=== PATIENT | male | born 1950 ===

== ENCOUNTER 2016-12-27 07:02 | Outpatient (CLI) | payer MEDICARE, MEDICAID ==
[2016-12-27 18:32] LABS: BASOPHILS # (AUTO) 0.1 10^3/uL (0.0-0.1); BASOPHILS % (AUTO) 0.9 %; EOSINOPHILS # (AUTO) 0.2 10^3/uL (0.0-0.7); EOSINOPHILS % (AUTO) 2.2 %; HCT - HEMATOCRIT 33.5 % (42.0-52.0); HGB - HEMOGLOBIN 11.1 g/dL (14.0-18.0); LYMPHOCYTES % (AUTO) 11.5 %; MEAN CORPUSCULAR HEMOGLOBIN 26.9 pg (27.0-31.0); MEAN CORPUSCULAR HGB CONC 33.2 g/dL (32.0-36.0); MEAN PLATELET VOLUME 8.7 fL (7.4-11.4); MONOCYTES # (AUTO) 0.8 10^3/uL (0.0-1.0); MONOCYTES % (AUTO) 8.4 %; NEUTROPHILS # (AUTO) 6.9 10^3/uL (1.5-6.6); RED BLOOD COUNT 4.14 10^6/uL (4.70-6.10); RED CELL DISTRIBUTION WIDTH 16.8 % (12.0-15.0)
== END 2016-12-27 07:03 | disposition home or self-care (01) ==
LOC: LAB.R 07:02
PROVIDERS: ATTEND Internal Medicine Infectious Disease
DX: A41.01 Sepsis due to Methicillin susceptible Staphylococcus aureus (principal)
CPT/HCPCS: 82550; 85025